=== PATIENT | female | born 1965 | race Caucasian/White ===

== ENCOUNTER → 2016-11-26 | Outpatient (CLI) | payer OTHER ==
--- NOTE | 2016-11-27 08:49 | KCIC ---
Examination: MRI of the left shoulder without contrast. HISTORY History of limited range of motion, left shoulder pain. COMPARISON None available. TECHNIQUE Multiplanar, multisequence MR imaging of the left shoulder was performed without contrast. FINDINGS The long head of the biceps tendon is within the bicipital groove. The attachment of the long head of the biceps tendon to the superior labral anchor grossly appears intact. The attachment of the subscapularis tendon grossly appears intact. There is mild increased signal identified in the subscapularis tendon likely mild tendinosis. The attachment of the supraspinatus, infraspinatus tendon grossly appears intact. The attachment of the teres minor tendon grossly appears intact. Moderate degenerative changes identified in the acromioclavicular joint and the glenohumeral joint. The inferior aspect of the acromion abuts the superior aspect of the supraspinatus tendon anteriorly. The acromion is type 2. There is mild increased signal identified in the labrum particularly in the superior labrum likely secondary to degeneration. Fat is present within the rotator interval. The muscle bulk grossly appears unremarkable. IMPRESSION - No evidence of rotator cuff tear. - Moderate degenerative changes in the acromioclavicular joint with the acromion downsloping and inferior aspect of the acromion about in the anterior aspect of the supraspinatus tendon. Correlate for impingement. - Mild increased signal and high in the labrum likely degeneration. - Moderate degenerative changes glenohumeral joint . - Mild tendinosis subscapularis tendon. Electronically signed by: Anjum Ortiz (Nov 27, 2016 08:47:07)
== END | disposition home or self-care (01) ==
LOC: KCIC MRI 16:17
PROVIDERS: ATTEND Family Medicine
DX: M25.512 Pain in left shoulder (principal); Z90.49 Acquired absence of other specified parts of digestive tract; Z90.710 Acquired absence of both cervix and uterus; Z98.890 Other specified postprocedural states
CPT/HCPCS: 73221

== ENCOUNTER 2017-03-19 11:20 | Day surgery (SDC) | payer OTHER ==
[~2017-03-19] VITALS: Ht 165.1 cm; Wt 82.0 kg
[~2017-03-19 11:20] MED LIST: HYDROmorphone 2 MG/ML VIAL IV PRN; IV RINGERS,LACTATED 1000ML 1,000 ML IV SCH; LIDOCAINE 1% 1 ML SYRINGE. ID PRN; MORPHINE SULFATE 2 MG/ML DISP.SYRIN. IV PRN; ONDANSETRON PF 4 MG/2 ML VIAL. IV PRN; PROCHLORPERAZINE 10 MG/2 ML VIAL. IV PRN; fentaNYL PF VIAL 100 MCG/2 ML VIAL IV PRN
[2017-03-19] MEDS ORDERED: NAPR500T PO (11:59)
[2017-03-19] MEDS ORDERED: CYCL10TA2 PO (11:59)
[2017-03-19] MEDS ORDERED: LISI2.5T PO (12:00)
[2017-03-19] MEDS ORDERED: ALPR0.5T6 PO (12:01)
[2017-03-19] MEDS ORDERED: LOVA40TA2 PO (12:11)
[2017-03-19] MEDS ORDERED: FENO145T2 PO (12:11)
[2017-03-19] MEDS ORDERED: LIRA0.6P2 SQ (12:12)
[2017-03-19] MEDS ORDERED: INSU100I30 SQ (12:13)
[2017-03-19] MEDS ORDERED: CETI10TA22 PO (12:14)
[2017-03-19] MEDS ORDERED: FAMOTIDINE 20 MG/2 ML VIAL ONE (12:25)
[2017-03-19] MEDS ORDERED: LIDOCAINE 2% PF Vial for OR 5 ML VIAL. ONE (12:25)
[2017-03-19] MEDS ORDERED: DEXAMETHASONE SOD PHOS 20 MG/5 ML VIAL. ONE (12:25)
[2017-03-19] MEDS ORDERED: ONDANSETRON PF 4 MG/2 ML VIAL. ONE (12:25)
[2017-03-19] MEDS ORDERED: PROPOFOL 20 ML IV ONE (12:25)
[2017-03-19] MEDS ORDERED: ROCURONIUM 50 MG/5 ML VIAL. ONE (12:28)
[2017-03-19] MEDS ORDERED: fentaNYL PF VIAL 100 MCG/2 ML VIAL ONE (12:28)
[2017-03-19] MEDS ORDERED: BUPIVACAINE MPF 0.5% 30 ML VIAL. ONE (13:05)
[2017-03-19] MEDS ORDERED: MIDAZOLAM HCL/PF 2 MG/2 ML VIAL. ONE ×2 (13:10)
[2017-03-19] MEDS ORDERED: EPINEPHrine VIAL 30 MG/30 ML VIAL ONE (13:27)
[2017-03-19] MEDS ORDERED: GLYCOPYRROLATE 1 MG/5 ML VIAL. ONE (15:01)
[2017-03-19] MEDS ORDERED: NEOSTIGMINE METHYLSULFATE 5 MG/5 ML SYRINGE. ONE (15:01)
[2017-03-19] MEDS ORDERED: DESFLURANE 61 TO 120 MINUTES IH ONE (15:01)
[2017-03-19] MEDS: fentaNYL PF VIAL 100 MCG/2 ML VIAL IV PRN ×2 (15:36→15:53)
--- NOTE | 2017-03-19 15:58 | DISCH ---
DISCHARGE INSTRUCTIONS Condition on Discharge Condition on Discharge: Stable Activity After Discharge Activity Instructions for Disc: Activity as tolerated, Other, see below Other activity instructions: immediate motion, sling for comfort only Diet after Discharge Diet after Discharge: Regular Wound Incision Care Wound/Incision Care: Ice to area for comfort, Keep wound elevated Other wound/incision instructi: remove dressing 2 days may then shower Community/Resources/Services Services at Discharge: PT EVALUATE & TREAT (immediate motion strength as tolerated) Contacting the DR. after DC Call your doctor for: Concerns you may have Follow-Up Follow up with: [place] 7-10 days ENMA HONG MD Mar 19, 2017 15:58
[2017-03-19] MEDS ORDERED: HYDR-963 PO (16:00)
--- NOTE | 2017-03-19 16:04 | PDOC ---
BRIEF OPERATIVE NOTE Date: Mar 19, 2017 Pre-Op Diagnosis adhesive capsulitis, ac djd and pain, superior labral tear Post-Op Diagnosis same but superior labrum with fraying but insertion intact Procedure Performed left shoulder labral and capsular debridement, decompression , distal clavicle excision Surgeon [place] Anesthesia Type: General, Regional Blood Loss 5cc Findings above Complications none ENMA HONG MD Mar 19, 2017 16:04
[2017-03-19 16:38] VITALS: BP 121/62
--- NOTE | 2017-03-21 12:19 | OP ---
DATE OF SURGERY: 03/19/2017 PREOPERATIVE DIAGNOSES: SLAP tear of left shoulder with adhesive capsulitis and acromioclavicular joint pain and degenerative changes. POSTOPERATIVE DIAGNOSES: Adhesive capsulitis, labral fraying superiorly with otherwise intact biceps anchor, acromioclavicular joint degenerative change and significant anterior acromial spur. PROCEDURE: Left shoulder arthroscopic lysis of adhesions and labral debridement, distal clavicle excision, and subacromial decompression. SURGEON: Sage Putnam MD. ANESTHESIA: General plus scalene block. ESTIMATED BLOOD LOSS: 5 mL. COMPLICATIONS: None. OPERATIVE INDICATIONS: The patient is a 51-year-old female with left shoulder stiffness and severe pain, unresponsive to nonoperative management. I had gone over with her my clinical suspicion for frozen shoulder, her MRI findings of superior labral tear. We talked about the possibility of clearing up the frozen shoulder, breaking up the adhesions, possible labral repair, biceps tenodesis, depending on the condition and addressing her distal clavicle and bone spur to avoid further irritation that may aggravate her in the rehabilitation process, we talked through risks, benefits, postoperative course of the procedure, possibility of continued pain, nerve or blood vessel damage, medical or other anesthetic complications, sometimes extended period of rehabilitation associated with shoulder issues among others. All her questions were answered. Consent was obtained and she agrees to proceed with operative evaluation and treatment. OPERATIVE TECHNIQUE: The patient was identified, procedure verified, patient placed in the supine position on the operating table. After adequate amounts of general endotracheal anesthesia plus a preexisting scalene block were obtained, she was placed in decubitus, left side up. All bony prominences were well padded and the left shoulder was examined under anesthesia. She was found to have significant passive block through her full range of motion in all planes. Therefore, after timeout was performed, the patient and procedure identified and verified, left shoulder was manipulated under anesthesia to regain full range of motion in all planes without instability. Next, the shoulder was prepped and draped in standard sterile fashion, placed in the arthroscopic arm real with a total of 10 pounds of traction, standard posterior portal was established and anterior portal established using spinal needle localization and the shoulder joint was systematically examined. She was noted to have significant capsulitis and while she had irritation of the biceps tendon itself, the biceps anchor was not found to be compromised and she had some superior and anterior labral fraying which was debrided back to stable tissue using arthroscopic shaver. Subscapularis and the remainder of the rotator cuff insertion were noted to be intact. Normal bare area of the humerus, no instability was noted. There was no subluxation of the biceps tendon noted. Next, given the condition, arthroscopic lysis of capsular adhesions was carried out. Next, subacromial space was then entered. She was found to have a large anterior acromial spur in addition to the arthritic distal clavicle. Anterior acromial spur was removed after adequate visualization using arthroscopic bur with cutting block technique back to a type 1 acromion. Distal clavicle was excised 1 cm to provide an adequate joint space, preserving the overlying ligaments for stability. The bony fragments were then removed with the arthroscopic shaver and the rotator cuff examined from the bursal side in all degrees of internal and external rotation and found to be intact. The joint was then drained of arthroscopic fluid. Portals closed with nylon suture. Sterile dressings were applied. The patient was given a sling, extubated and transferred to postop holding in stable condition having tolerated the procedure well. Please note that postoperatively, I discussed with her and her the findings and encouraged her immediately to get into physical therapy and wrote orders to that effect for immediate aggressive range of motion with no restrictions. SAGE PUTNAM MD DR: FLASH/ailin JOB#: [id number] / [id number] EUGENIO Dubose MD
--- NOTE | 2017-03-22 01:27 | HP ---
ADMIT DATE: 03/19/2017 CHIEF COMPLAINT: Left shoulder pain. HISTORY OF PRESENT ILLNESS: The patient has almost a one and half year history of sudden left shoulder pain with sudden onset of pain and weakness. States that it is worse lifting away from her body, better resting her arm at her side and was originally told that she had shoulder arthritis, but continues to have very severe pain reaching, for example at an LUCIEN machine, has severe pain 10 on a scale of 10 with those aggravating movements. I previously discussed with her the possibility of a diagnosis of adhesive capsulitis and MRI findings of the superior labrum ____. PAST MEDICAL HISTORY: Significant for type 2 diabetes, hyperlipidemia, anxiety, thyroid problems. PAST SURGICAL HISTORY: Hysterectomy, ____, carpal tunnel release, laparoscopic cholecystectomy. FAMILY HISTORY: Significant for Jono's thyroiditis in her mother, diabetes in her father. Cancer in her family. SOCIAL HISTORY: She is a half pack per day smoker, minimal alcohol use, no drug use. MEDICATIONS: List is reviewed. ALLERGIES: HER SENSITIVITY INCLUDES PERCOCET, WHICH GIVES HER INSOMNIA, ALSO INDICATES ALLERGIES TO PENICILLAMINE AND FISH OIL. REVIEW OF SYSTEMS: Significant really for the shoulder pain, no chest pain, shortness of breath, focal weakness, numbness, tingling, visual changes, constitutional symptoms, fever or chills. PHYSICAL EXAMINATION: VITAL SIGNS: Per admission sheet. HEENT: Atraumatic, normocephalic. HEART: Regular rate and rhythm. LUNGS: Clear to auscultation bilaterally. ABDOMEN: Benign. EXTREMITIES: Left shoulder reveals decreased range of motion in all planes, pain on extremes of range of motion, some weakness secondary to pain. No apprehension or instability. Normal motion of the contralateral shoulder, bilateral elbows, and wrists. IMAGING: MRI images appeared to show some superior labral signal changes of the biceps anchor, intact rotator cuff, severe degenerative change of the acromioclavicular joint with marked bony edema and joint irregularity. Radiology report indicates superior labral degenerative changes. ASSESSMENT: 1. Adhesive capsulitis, left shoulder. 2. Pain, left acromioclavicular joint. 3. Superior glenoid labrum ____ of the left shoulder. TREATMENT PLAN: I have told her and previously had gone over in clinic the typical course of adhesive capsulitis. We talked about the possibility that being secondary to the acromioclavicular joint pain and possibly superior labral injury, I gave her the option to primarily to address the adhesive capsulitis only, possibly with letting it run its course or rehabilitation, possibility of manipulation under anesthesia or dealing with any other issues including arthroscopic evaluation of the labrum, distal clavicle excision, possible bicipital tenodesis as well as lysis of adhesions depending on operative findings. She wants to proceed with operative evaluation and treatment and had previously understood the risks, benefits, postoperative course including stiffness, infection, nerve or blood vessel damage, medical or other anesthetic complications, long recovery process with extensive physical therapy. All her questions were answered. She is going to proceed with outpatient surgery today as above. ENMA HONG MD DR: FLASH/ailin JOB#: [id number] / [id number] EUGENIO Dubose MD
== END 2017-03-19 17:20 | disposition home or self-care (01) ==
LOC: SURG 11:20
PROVIDERS: ATTEND Orthopaedic Surgery
DX: M75.02 Adhesive capsulitis of left shoulder (principal); M19.012 Primary osteoarthritis, left shoulder; M25.612 Stiffness of left shoulder, not elsewhere classified; E78.00 Pure hypercholesterolemia, unspecified; J45.909 Unspecified asthma, uncomplicated; E66.9 Obesity, unspecified; E11.9 Type 2 diabetes mellitus without complications; F41.9 Anxiety disorder, unspecified; Z90.710 Acquired absence of both cervix and uterus; Z86.69 Personal history of other diseases of the nervous system and sense organs
CPT/HCPCS: 29822; 29826; 82962; J0171; J0690; J1100; J2250; J2405; J2704; J2710; J3010; J3490; S0028